=== PATIENT | female | born 1995 | race African-American/Black ===

== ENCOUNTER 2020-04-02 23:30 | Inpatient (IN) | payer MEDICAID ==
[~2020-04-02] VITALS: Ht 162.6 cm; Wt 94.0 kg
[2020-04-03] VITALS (12 sets, daily range): BP systolic 108–121; BP diastolic 57–70
[2020-04-03] MEDS ORDERED: PANTOPRAZOLE SODIUM 40 MG/VIAL IV STA (00:40)
[2020-04-03] MEDS ORDERED: ONDANSETRON HCL 4MG/2ML INJ IV STA (00:40)
[2020-04-03 00:45] LABS: CLARITY URINE CLOUDY (CLEAR); COLOR URINE YELLOW (YELLOW); KETONES URINE 2+ (NEGATIVE); LEUKOCYTE ESTERASE URINE TRACE (NEGATIVE); NITRITE URINE NEGATIVE (NEGATIVE); OCCULT BLOOD URINE 3+ (NEGATIVE); PROTEIN URINE 2+ (NEGATIVE); SPECIFIC GRAVITY URINE 1.024 (1.005-1.030)
[2020-04-03] MEDS ORDERED: SODIUM CHLORIDE 0.9% 1,000 ML IV ONE (00:45)
[2020-04-03] MEDS ORDERED: ONDANSETRON 4MG ODT PO ONE (00:45)
[2020-04-03 04:01] LABS: CHLORIDE 104 mEq/L (98-107)
[2020-04-03 04:40] LABS: HCG SCREEN NEGATIVE
[2020-04-03 04:54] LABS: HEMATOCRIT. 23.1 % (36.0-48.0); HEMOGLOBIN. 5.8 g/dL (12.0-16.0); MEAN CORPUSCULAR HEMOGLOBIN 12.4 pg (28.0-32.0); MEAN CORPUSCULAR VOLUME 49.6 fL (81.0-99.0); RED BLOOD CELL COUNT 4.65 mill/uL (4.2-5.4)
[2020-04-03 04:55] LABS: BASOPHILS % 0.5 % (0.0-2.0); EOSINOPHILS % 1.3 % (0.0-5.0); LYMPHOCYTES % 30.9 % (20.0-50.0); MONOCYTES % 8.8 % (2.0-8.0); NEUTROPHILS % 58.5 % (40.0-76.0); PLATELET 266 x1000/uL (130-400); RED CELL DISTRIBUTION WIDTH 23.5 % (11.6-14.6)
[2020-04-03] MEDS ORDERED: ONDANSETRON HCL 4MG/2ML INJ IV PRN (11:00)
[2020-04-03] MEDS: FERROUS SULFATE 325MG TABLET PO SCH ×2 (14:10→18:09)
[2020-04-03 15:48] LABS: BASOPHILS % 0.5 % (0.0-2.0); EOSINOPHILS % 1.5 % (0.0-5.0); HEMATOCRIT. 26.9 % (36.0-48.0); HEMOGLOBIN. 7.6 g/dL (12.0-16.0); MEAN CORPUSCULAR HEMOGLOBIN 16.8 pg (28.0-32.0); MEAN CORPUSCULAR VOLUME 59.2 fL (81.0-99.0); MEAN PLATELET VOLUME 8.6 fl (7.4-10.4); MONOCYTES % 10.8 % (2.0-8.0); NEUTROPHILS % 58.2 % (40.0-76.0); PLATELET 219 x1000/uL (130-400); RED BLOOD CELL COUNT 4.54 mill/uL (4.2-5.4); RED CELL DISTRIBUTION WIDTH 37.5 % (11.6-14.6)
[2020-04-03 16:29] LABS: PLATELET ESTIMATE NORMAL
[2020-04-03] MEDS ORDERED: FAMOTIDINE 20MG TABLET PO SCH (21:00)
[2020-04-04] VITALS (8 sets, daily range): BP systolic 93–126; BP diastolic 41–75
[2020-04-04 06:28] LABS: BASOPHILS % 0.3 % (0.0-2.0); EOSINOPHILS % 0.9 % (0.0-5.0); HEMATOCRIT. 30.3 % (36.0-48.0); HEMOGLOBIN. 8.8 g/dL (12.0-16.0); LYMPHOCYTES % 29.3 % (20.0-50.0); MEAN PLATELET VOLUME 8.5 fl (7.4-10.4); NEUTROPHILS % 60.5 % (40.0-76.0); PLATELET 202 x1000/uL (130-400); RED BLOOD CELL COUNT 4.89 mill/uL (4.2-5.4)
[2020-04-04] MEDS ORDERED: DOCU250C14 MT (08:21)
[2020-04-04] MEDS ORDERED: FERR-71 MT (08:21)
[2020-04-04] MEDS: FERROUS SULFATE 325MG TABLET PO SCH (08:58)
[2020-04-04] MEDS ORDERED: DOCUSATE SODIUM 250MG CAPSULE PO SCH (09:00)
== END 2020-04-04 11:55 | disposition home or self-care (01) | DRG 532 ==
LOC: ER 23:30 → 3WST 04-03 04:28 → CANRESERV 04-03 07:56 → ENRESERV 04-03 07:56
PROVIDERS: ADMIT Internal Medicine; ATTEND Internal Medicine
PROC: 30233N1 Transfusion of Nonautologous Red Blood Cells into Peripheral Vein, Percutaneous Approach (ICD-10-PCS; principal; 2020-04-03)
DX: N92.0 Excessive and frequent menstruation with regular cycle (principal); D64.9 Anemia, unspecified; E66.9 Obesity, unspecified; J45.909 Unspecified asthma, uncomplicated; K21.9 Gastro-esophageal reflux disease without esophagitis; K80.20 Calculus of gallbladder without cholecystitis without obstruction; Z91.018 Allergy to other foods; Z71.3 Dietary counseling and surveillance; Z68.35 Body mass index [BMI] 35.0-35.9, adult
CPT/HCPCS: 36415; 71045; 76705; 76830; 76856; 80053; 81003; 84703; 85025; 86850; 86900; 86920; 99285; C9113; J2405; J7030; J7040; P9016; Q0162; A4315